=== PATIENT | female | born 1985 ===

== ENCOUNTER 2017-01-25 19:34 | Emergency (ER) | payer MEDICAID ==
[2017-01-25 19:34] VITALS: BMI 22.2
[2017-01-25 20:03] VITALS: BP 130/79; PULSE 80; RESP 18; TEMP 98.1; O2SAT 99
[2017-01-25] MEDS ORDERED: Sodium Chloride 0.9% 1,000 ML IV STA (21:03)
--- NOTE | 2017-01-25 21:06 | ED PDOC ---
HPI: General Adult Time Seen by Provider: 01/25/17 20:37 Chief Complaint (Nursing): GI Problem Chief Complaint (Provider): nausea, vomiting History Per: Patient History/Exam Limitations: no limitations Onset/Duration Of Symptoms: Days (1) Current Symptoms Are (Timing): Still Present Additional History Per: Patient Additional Complaint(s): 31 y/o female presents for eval of nausea with one episode of vomiting x 1 day. Patient states after she vomited she noted muscle cramps in her lower legs. Patient states she was prescribed Ativan 0.5mg 4 times daily, but since she switched doctors she tried to stretch her last prescription until her appointment tomorrow, so was taking one tablet daily, and has not taken any in the last 4 days. Patient also notes seizures that began early December, is being followed by Neurologist and had MRI 2 weeks ago. Denies fever, headache, dizziness, vision changes, extremity numbness/weakness, chest pain, shortness of breath, abdominal pain, changes in bowel movements, urinary symptoms, recent travel, sick contacts. Past Medical History Reviewed: Historical Data, Nursing Documentation, Vital Signs Vital Signs: Last Vital Signs Temp 98.1 F 01/25/17 19:55 Pulse 80 01/25/17 19:55 Resp 18 01/25/17 19:55 BP 130/79 01/25/17 19:55 Pulse Ox 99 01/26/17 00:05 - Medical History PMH: Anxiety, Asthma, Bipolar Disorder, Depression, HTN, Seizures Denies: Chronic Kidney Disease - Surgical History Surgical History: No Surg Hx - Family History Family History: States: Unknown Family Hx - Living Arrangements Living Arrangements: Alone (homeless) - Immunization History Hx Tetanus Toxoid Vaccination: No Hx Influenza Vaccination: No Hx Pneumococcal Vaccination: No - Home Medications Home Medications: Ambulatory Orders Medication Instructions Recorded Bupropion HCl [Wellbutrin Sr] 300 mg PO DAILY 11/14/16 Cyclobenzaprine [Flexeril] 10 mg PO BID 11/14/16 DULoxetine [Cymbalta] 60 mg PO DAILY 11/14/16 Diclofenac 50 mg PO BID 11/14/16 Gabapentin 600 mg PO TID 11/14/16 Metoprolol Succinate [Toprol XL] 25 mg PO DAILY 11/14/16 Pantoprazole [Protonix EC Tab] 40 mg PO DAILY 11/14/16 buPROPion SR [Wellbutrin SR 150 MG] 150 mg PO HS 11/14/16 hydrOXYzine Pamoate [Vistaril] 50 mg PO QID 11/14/16 lamoTRIgine [Lamictal] 100 mg PO BID 11/14/16 rOPINIRole [Requip] 2 mg PO DAILY 11/14/16 valACYclovir [Valtrex] 500 mg PO DAILY 11/14/16 Albuterol Sulfate [Proair Hfa] 0.09 mg IH Q4 PRN #1 inh 12/26/16 Azithromycin [Z-Joey] 250 mg PO DAILY #6 tab 12/26/16 Benzonatate [Tessalon Perle] 100 mg PO TID #15 capsule 12/26/16 Codeine 60 mg PO BID 12/26/16 Codeine/Butalbital/ASA/Caffein 1 tab PO BID 12/26/16 [Fiorinal with Codeine #3 Cap] Hydrocodone/Acetaminophen [[place] 1 tab PO BID 12/26/16 10-325 Tablet] LORazepam [Ativan] 0.5 mg PO QID 12/26/16 Prednisone 60 mg PO DAILY #4 tablet 12/26/16 QUEtiapine [SEROquel] 50 mg PO HS 12/26/16 Topiramate [Topamax] 25 mg PO BID 12/26/16 Zolpidem [Ambien] 10 mg PO HS 12/26/16 - Allergies Allergies/Adverse Reactions: Allergies Allergy/AdvReac Type Severity Reaction Status Date / Time casanova Allergy ANGIOEDEMA Verified 12/26/16 17:06 soy AdvReac ANGIOEDEMA Verified 11/14/16 13:10 nectarines Allergy ANGIOEDEMA Uncoded 12/26/16 17:06 Review of Systems ROS Statement: Except As Marked, All Systems Reviewed And Found Negative Gastrointestinal: Positive for: Nausea, Vomiting Physical Exam - Reviewed Nursing Documentation Reviewed: Yes Vital Signs Reviewed: Yes - Physical Exam Appears: Positive for: Well, Non-toxic, No Acute Distress Head Exam: Positive for: ATRAUMATIC, NORMAL INSPECTION, NORMOCEPHALIC Skin: Positive for: Normal Color Eye Exam: Positive for: Normal appearance ENT: Positive for: Normal ENT Inspection Cardiovascular/Chest: Positive for: Regular Rate, Rhythm Respiratory: Positive for: Normal Breath Sounds Gastrointestinal/Abdominal: Positive for: Normal Exam Back: Positive for: Normal Inspection Extremity: Positive for: Normal ROM Neurologic/Psych: Positive for: Alert, Oriented - Laboratory Results Result Diagrams: 01/25/17 21:23 01/25/17 21:23 - ECG O2 Sat by Pulse Oximetry: 99 - Progress ED Course And Treament: labs, IV fluids, IV zofran, PO ativan Patient tolerating PO on re-eval. Patient educated on findings, potassium PO given and flexeril PO given. Advised follow up with PMD 2-3 days. Follow up with psychiatrist at scheduled appointment (tomorrow at 10:00am) Return to ED for worsening/concerning symptoms. Disposition - Clinical Impression Clinical Impression: Nausea and vomiting, Muscle cramps, Hypokalemia Counseled Patient/Family Regarding: Studies Performed, Diagnosis, Need For Followup - Disposition Disposition: Routine/Home Disposition Time: 00:06 Condition: IMPROVED Instructions: Hypokalemia (ED), Acute Nausea and Vomiting (ED), Leg Cramps (ED)
[2017-01-25 21:32] LABS: BASO # 0.1 K/uL (0.0-0.2); BASO % 1.2 % (0.0-2.0); EOS # 0.5 K/uL (0.0-0.7); EOS % 6.3 % (0.0-4.0); HEMATOCRIT 37.5 % (34.0-47.0); LYMPH # 2.7 K/uL (1.0-4.3); LYMPH % 34.6 % (20.0-40.0); MEAN CELL VOLUME 97.6 fl (81.0-99.0); MEAN CORPUSCULAR HEMOGLOBIN 32.2 pg (27.0-31.0); MEAN PLATELET VOLUME 7.6 fl (7.2-11.7); MONO # 0.5 K/uL (0.0-0.8); MONO % 6.9 % (0.0-10.0); NRBC % 0.1 % (0.0-0.0); WHITE BLOOD COUNT 7.9 K/uL (4.8-10.8)
[2017-01-25 21:47] LABS: RBC URINE 3 /hpf (0-3); URINE BILIRUBIN NEGATIVE (NEGATIVE); URINE BLOOD NEGATIVE (NEGATIVE); URINE COLOR YELLOW (YELLOW); URINE GLUCOSE (UA) NEG (Normal); URINE KETONE TRACE mg/dL (NEGATIVE); URINE LEUKOCYTE ESTERASE NEG Leu/uL (Negative); URINE PROTEIN 30 mg/dL (NEGATIVE); URINE UROBILINOGEN 0.2-1.0 mg/dL (0.2-1.0); WBC URINE 1 /hpf (0-5)
[2017-01-25 21:53] LABS: ALB/GLOB RATIO 1.6 (1.0-2.1); ALKALINE PHOSPHATASE 59 U/L (38-126); ALT/SGPT 50 U/L (9-52); AST/SGOT 29 U/L (14-36); BILIRUBIN,TOTAL 0.4 mg/dl (0.2-1.3); BLOOD UREA NITROGEN 11 mg/dl (7-17); CARBON DIOXIDE 26 mmol/L (22-30); CHLORIDE 104 mmol/L (98-107); GFR AFRICAN-AMERICAN > 60; GLUCOSE,RANDOM 101 mg/dL (65-105); LIPASE 48 U/L (23-300); PHOSPHOROUS 3.7 mg/dl (2.5-4.5); POTASSIUM 3.2 MMOL/L (3.6-5.0); SODIUM 139 mmol/l (132-148); TOTAL PROTEIN 7.1 G/DL (6.3-8.2)
[2017-01-25] MEDS ORDERED: Potassium Chloride 20 mEq ER Tab PO ONE (23:43)
[2017-01-26] MEDS ORDERED: Potassium Chloride 20 mEq ER Tab PO ONE (00:05)
== END 2017-01-26 00:16 | disposition home or self-care (01) ==
LOC: H.ER 19:34
DX: R11.2 Nausea with vomiting, unspecified (principal); E87.6 Hypokalemia; F31.9 Bipolar disorder, unspecified; F41.9 Anxiety disorder, unspecified; I10 Essential (primary) hypertension; Z79.82 Long term (current) use of aspirin

== ENCOUNTER 2018-01-07 22:59 | Emergency (ER) | payer MEDICAID ==
[2018-01-07 22:59] VITALS: BMI 22.2
[2018-01-07 23:12] VITALS: TEMP 97.9
--- NOTE | 2018-01-08 00:05 | ED PDOC ---
Lower Extremity Pain/Injury Time Seen by Provider: 01/08/18 00:04 Chief Complaint (Nursing): Lower Extremity Problem/Injury Chief Complaint (Provider): ankle injury History Per: Patient (32 y/o female undomiciled here with ankle pain/swelling and possible ankle injury. NOtes bilateral leg pain to knees bilaterally ongoing. ) Past Medical History Reviewed: Historical Data, Nursing Documentation, Vital Signs Vital Signs: Last Vital Signs Temp 97.9 F 01/07/18 23:09 Pulse 96 H 01/07/18 23:09 Resp 18 01/07/18 23:09 BP 98/56 L 01/07/18 23:09 Pulse Ox 100 01/07/18 23:09 - Medical History PMH: Anxiety, Asthma, Bipolar Disorder, Depression, HTN, Seizures Denies: Chronic Kidney Disease - Family History Family History: States: Unknown Family Hx - Immunization History Hx Tetanus Toxoid Vaccination: No Hx Influenza Vaccination: No Hx Pneumococcal Vaccination: No - Home Medications Home Medications: Ambulatory Orders Medication Instructions Recorded Bupropion HCl [Wellbutrin Sr] 300 mg PO DAILY 11/14/16 Cyclobenzaprine [Flexeril] 10 mg PO BID 11/14/16 DULoxetine [Cymbalta] 60 mg PO DAILY 11/14/16 Diclofenac 50 mg PO BID 11/14/16 Gabapentin 600 mg PO TID 11/14/16 Metoprolol Succinate XL [Toprol XL] 25 mg PO DAILY 11/14/16 Pantoprazole [Protonix EC Tab] 40 mg PO DAILY 11/14/16 buPROPion SR [Wellbutrin SR 150 MG] 150 mg PO HS 11/14/16 hydrOXYzine Pamoate [Vistaril] 50 mg PO QID 11/14/16 lamoTRIgine [Lamictal] 100 mg PO BID 11/14/16 rOPINIRole [Requip] 2 mg PO DAILY 11/14/16 valACYclovir [Valtrex] 500 mg PO DAILY 11/14/16 Albuterol Sulfate [Proair Hfa] 0.09 mg IH Q4 PRN #1 inh 12/26/16 Azithromycin [Z-Joey] 250 mg PO DAILY #6 tab 12/26/16 Benzonatate [Tessalon Perle] 100 mg PO TID #15 capsule 12/26/16 Codeine 60 mg PO BID 12/26/16 Codeine/Butalbital/ASA/Caffein 1 tab PO BID 12/26/16 [Fiorinal with Codeine #3 Cap] Hydrocodone/Acetaminophen [[place] 1 tab PO BID 12/26/16 10-325 Tablet] LORazepam [Ativan] 0.5 mg PO QID 12/26/16 Prednisone 60 mg PO DAILY #4 tablet 12/26/16 QUEtiapine [SEROquel] 50 mg PO HS 12/26/16 Topiramate [Topamax] 25 mg PO BID 12/26/16 Zolpidem [Ambien] 10 mg PO HS 12/26/16 Naproxen 375 mg PO Q8 PRN #21 tablet 01/08/18 - Allergies Allergies/Adverse Reactions: Allergies Allergy/AdvReac Type Severity Reaction Status Date / Time casanova Allergy ANGIOEDEMA Verified 12/26/16 17:06 soy AdvReac ANGIOEDEMA Verified 11/14/16 13:10 nectarines Allergy ANGIOEDEMA Uncoded 12/26/16 17:06 Review of Systems ROS Statement: Except As Marked, All Systems Reviewed And Found Negative Physical Exam - Reviewed Nursing Documentation Reviewed: Yes Vital Signs Reviewed: Yes - Physical Exam Appears: Positive for: Well, Non-toxic, No Acute Distress Head Exam: Positive for: ATRAUMATIC, NORMAL INSPECTION, NORMOCEPHALIC Skin: Positive for: Normal Color, Warm, DRY Eye Exam: Positive for: EOMI, Normal appearance, PERRL ENT: Positive for: Normal ENT Inspection Neck: Positive for: Normal, Painless ROM Cardiovascular/Chest: Positive for: Regular Rate, Rhythm Respiratory: Positive for: CNT, Normal Breath Sounds Gastrointestinal/Abdominal: Positive for: Normal Exam, Soft Back: Positive for: Normal Inspection Extremity: Positive for: Normal ROM, Tenderness, Swelling (left ankle) Neurologic/Psych: Positive for: Alert, Oriented - ECG O2 Sat by Pulse Oximetry: 100 - Progress ED Course And Treament: XRY ANKLE: NEG FOR FX Disposition - Clinical Impression Clinical Impression: Ankle pain - Patient ED Disposition Is Patient to be Admitted: No - Disposition Referrals: Podiatry Clinic [Outside] Disposition: Routine/Home Disposition Time: 01:40 Condition: STABLE Prescriptions: Naproxen 375 mg PO Q8 PRN #21 tablet PRN Reason: Pain, Moderate (4-7) Instructions: Ankle Sprain (DC)
[2018-01-08 02:51] VITALS: BP 133/64; PULSE 77; RESP 16; O2SAT 98
--- NOTE | 2018-01-08 10:24 | RAD ---
PROCEDURE: Left Ankle Radiographs. HISTORY: Posttraumatic ankle pain COMPARISON: None FINDINGS: BONES: Normal. No fracture. JOINTS: Normal. No osteoarthritis. Ankle mortise maintained. Talar dome intact SOFT TISSUES: Lateral and posterior soft tissue swelling without distal fibular fracture. OTHER FINDINGS: None. IMPRESSION: Soft tissue swelling without acute articular or osseous abnormality.
== END 2018-01-08 02:51 | disposition home or self-care (01) ==
LOC: H.ER 22:59
DX: M25.572 Pain in left ankle and joints of left foot (principal); Z86.59 Personal history of other mental and behavioral disorders; I10 Essential (primary) hypertension; J45.909 Unspecified asthma, uncomplicated; Z79.82 Long term (current) use of aspirin